=== PATIENT | male | born 1980 | race Caucasian/White ===

== ENCOUNTER 2016-06-25 15:38 | Outpatient (CLI) | payer OTHER | END 2016-06-25 15:39 | disposition home or self-care (01) | DX: E66.9 Obesity, unspecified (principal) ==

== ENCOUNTER 2016-07-16 15:36 | Outpatient (CLI) | payer OTHER | END 2016-07-16 15:37 | disposition home or self-care (01) | LOC: SC 15:36 | PROVIDERS: ATTEND Nurse Practitioner Family | DX: G47.33 Obstructive sleep apnea (adult) (pediatric) (principal) | CPT/HCPCS: 99212; 99214 ==

== ENCOUNTER 2016-09-25 15:39 | Outpatient (CLI) | payer OTHER | END 2016-09-25 15:40 | disposition home or self-care (01) | LOC: SC 15:39 | PROVIDERS: ATTEND Nurse Practitioner Family | DX: G47.33 Obstructive sleep apnea (adult) (pediatric) (principal) | CPT/HCPCS: 99212; 99214 ==

== ENCOUNTER 2016-10-17 15:38 | Outpatient (CLI) | payer OTHER | END 2016-10-17 15:39 | disposition home or self-care (01) | LOC: SC 15:38 | PROVIDERS: ATTEND Nurse Practitioner Family | DX: G47.33 Obstructive sleep apnea (adult) (pediatric) (principal) | CPT/HCPCS: 99212; 99214 ==